=== PATIENT | female | born 1980 | race Caucasian/White ===

== ENCOUNTER 2020-12-07 04:23 | Inpatient (IN) | payer BC, OTHER ==
[~2020-12-07] VITALS: Ht 172.7 cm; Wt 89.8 kg
[2020-12-07] MEDS ORDERED: predniSONE 20 MG TABLET ONE (04:44)
[2020-12-07] MEDS ORDERED: FAMOTIDINE (20 MG) 20 MG TABLET ONE (04:45)
--- NOTE | 2020-12-07 04:45 | NUR ---
PT BIBSELF C/O HIVES X1.5 WEEKS. 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 TOOK 50MG PO BENADRYL. PT IS ALERT AND ORIENTED X4. AMBULATORY WITH NON LABORED BREATHING.
[2020-12-07] MEDS ORDERED: FAMOTIDINE (20 MG) 20 MG TABLET PO ONE (05:00)
[2020-12-07] MEDS ORDERED: predniSONE 50 MG TABLET PO ONE (05:00)
[2020-12-07] MEDS ORDERED: EPINEPHRINE (1:1000) MDV 30 MG/30ML VIAL SUBCUT ONE (07:30)
[2020-12-07] MEDS ORDERED: EPINEPHRINE (1:1000) 1 MG/ML AMPUL ONE (07:30)
--- NOTE | 2020-12-07 08:04 | NUR ---
THE PATIENT IS ALERT AND ORIENTED X4. DENIES PAIN. IN ROOM AIR AND DENIES SOB. RESPIRATION REGULAR AND UNLABORED. WILL CONTINUE TO MONITOR THE PATIENT.
[2020-12-07] MEDS ORDERED: EPIN0.3P3 IJ (11:46)
[2020-12-07] MEDS ORDERED: PRED50TA PO (11:46)
--- NOTE | 2020-12-07 12:27 | NUR ---
JUNITO DOTSON IS AMY [phone]
--- NOTE | 2020-12-07 12:36 | NUR ---
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
--- NOTE | 2020-12-07 12:39 | NUR ---
COVID SWAB DONE AND SENT TO THE LAB
--- NOTE | 2020-12-07 13:39 | NUR ---
ROOM 109
--- NOTE | 2020-12-07 13:59 | NUR ---
REPORT GIVEN TO NURSE ALI
--- NOTE | 2020-12-07 14:50 | NUR ---
WARDSPERSON NOTE RECEIVED PATIENT VIA WHEELCHAIR. PATIENT IS A/O X4. PATIENT IS BREATHING EVENLY AND NONLABORED ON ROOM AIR. NO SIGNS OF DISTRESS NOTED. PATIENT DOES NOT COMPLAIN OF PAIN AT THIS TIME. VITALS O2 99% HR 80 TEMP 97.3 RR 18 BP 140/93. PATIENT HAS GENERALIZED ITCHING AND HIVES THROUGHOUT HER BODY. OTHERWISE SKIN DRY TO TOUCH. PATIENT IS ABLE TO AMBULATE. PATIENT HAS IV ACCESS TO RAC # 18 GAUGE, PATENT AND INTACT. MD MADE AWARE OF PATIENTS ARRIVAL TO UNIT. PATIENT WAS ORIENTED TO THE ROOM AND HOW TO USE THE CALL LIGHT. SAFETY MEASURES ARE IN PLACE BED LOW LOCKED AND CALL LIGHT WITHIN REACH. WILL CONTINUE TO MONITOR
--- NOTE | 2020-12-07 15:00 | NUR ---
THE PATIENT IS TRANSFERED TO ROOM 109 IN STABLE CONDITION AND PER POLICY.
[2020-12-07 15:07] VITALS: BP 140/93
--- NOTE | 2020-12-07 16:36 | NUR ---
RN NOTE PATIENT COMPLAINED OF ITCHINESS. MD NOTIFIED GAVE NEW ORDER FOR BENADRYL 25MG IVP Q6HRS FOR ITCHINESS. WILL CONTINUE TO MONITOR
[2020-12-07] MEDS: diphenhydrAMINE HCL 50 MG/ML VIAL IV PRN ×2 (16:44→19:43)
--- NOTE | 2020-12-07 17:00 | NUR ---
RN NOTE MD MADE ROUNDS TO SEE PATIENT, ASKED FOR MD ADMISSIONS ORDERS, MD STATED SHE WOULD PUT THEM IN. WILL CONTINUE TO MONITOR
--- NOTE | 2020-12-07 18:33 | NUR ---
RN CLOSING NOTE PATIENT RESTING IN BEDPATIENT IS A/O X4. PATIENT IS BREATHING EVENLY AND NONLABORED ON ROOM AIR. NO SIGNS OF DISTRESS NOTED. PATIENT DOES NOT COMPLAIN OF PAIN AT THIS TIME. PATIENT HAS GENERALIZED ITCHING AND HIVES THROUGHOUT HER BODY. PATIENT IS ABLE TO AMBULATE. PATIENT HAS IV ACCESS TO RAC # 18 GAUGE, PATENT AND INTACT.SAFETY MEASURES ARE IN PLACE BED LOW LOCKED AND CALL LIGHT WITHIN REACH. WILL ENDORSE TO ONCOMING SHIFT
--- NOTE | 2020-12-07 19:45 | NUR ---
RN NOTES, PATIENT C/O ITCHING, OTHERWISE NO BREATHING ISSUES, VS STABLE, AT ROOM AIR WITH OPTIMAL O2 SAT LEVEL, BENADRYL IV GIVEN ORDERED, WILL CONTINUE TO MONITOR CLOSELY, NO ORDERS NOTED IN THE EMAR, PAGED ALLYSSA, WILL F/U .
[2020-12-07 20:00] VITALS: BP 119/69
[2020-12-07] MEDS ORDERED: MAGNESIUM HYDROXIDE 30 ML UDC PO PRN (20:30)
[2020-12-07] MEDS ORDERED: MAG HYDROX/AL HYDROX/SIMETH 30 ML UDC PO PRN (20:30)
[2020-12-07] MEDS ORDERED: Z GUARD REMEDY 2 OZ OINT TP PRN (20:30)
[2020-12-07] MEDS ORDERED: ACETAMINOPHEN 325 MG TABLET PO PRN (20:30)
[2020-12-07] MEDS ORDERED: ONDANSETRON HCL/PF 4 MG/2 ML VIAL IVP PRN (20:30)
[2020-12-07] MEDS: methylPREDNISolone SOD SUCC 125 MG/2ML VIAL IV SCH (21:43)
[2020-12-07] MEDS: FAMOTIDINE (20 MG) 20 MG TABLET PO SCH (21:43)
--- NOTE | 2020-12-08 00:21 | NUR ---
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
[2020-12-08] MEDS ORDERED: diphenhydrAMINE HCL 50 MG/ML VIAL IV ONE (00:30)
[2020-12-08] MEDS ORDERED: HYDROCODONE/APAP 5/325MG TABLET PO PRN (00:30)
[2020-12-08 04:00] VITALS: BP 126/78
[2020-12-08] MEDS: methylPREDNISolone SOD SUCC 125 MG/2ML VIAL IV SCH ×2 (04:53→12:34)
[2020-12-08] MEDS: diphenhydrAMINE HCL 50 MG/ML VIAL IV PRN ×2 (05:09→11:19)
[2020-12-08 06:30] LABS: BASOPHILS % (AUTO) 0.1 % (0.0-2.0); HEMATOCRIT 43 % (33-45); LYMPHOCYTES # (AUTO) 0.8 K/uL (0.8-4.8); LYMPHOCYTES % (AUTO) 8.5 % (20.0-44.0); MEAN CORPUSCULAR HGB CONC 33 g/dl (31.0-36.0); MEAN CORPUSCULAR VOLUME 88 fL (82-100); MONOCYTES # (AUTO) 0.1 K/uL (0.1-1.30); MONOCYTES % (AUTO) 0.8 % (2.0-12.0); NEUTROPHILS # (AUTO) 8.2 K/uL (1.8-8.9); NEUTROPHILS % (AUTO) 90.6 % (43.0-81.0); PLATELET COUNT (AUTO) 260 K/uL (150-450); RED BLOOD CELL COUNT(AUTO) 4.81 MIL/uL (4.0-5.2); WHITE BLOOD COUNT (AUTO) 9.1 K/uL (4.3-11.0)
[2020-12-08 06:37] LABS: CALCIUM, SERUM 9.1 mg/dL (8.5-10.1); CREATININE 0.8 mg/dL (0.6-1.3); MAGNESIUM 2.4 mg/dL (1.8-2.4); PHOSPHORUS 2.9 mg/dL (2.5-4.9); POTASSIUM 3.8 mmol/L (3.5-5.1)
[2020-12-08 06:42] LABS: THYROID STIMULATING HORMONE 1.789 uIU/mL (0.358-3.74)
--- NOTE | 2020-12-08 06:44 | NUR ---
RN NOTES PATIENT ASLEEP AT THIS TIME, AROUSES TO TACTILE STIMULI, AT RA NO SOB/ACUTE DISTRESS NOTED, NO TROUBLE BREATHING, CONTINUE WITH ITCHING AND NEW HIVES, BENADRYL IV ADMINISTERED X3 DURING MY SHIFT, ON SOLU MEDROL WELL, ALL NEEDS ATTENDED ALL SAFETY MEASURES IN PLACED, LOWEST LOCKED POSITION, CALL LIGHT WITHIN REACH, WILL ENDORSE CONTINUITY OF CARE TO ONCOMING NURSE.
--- NOTE | 2020-12-08 07:29 | NUR ---
RN OPENING NOTE PATIENT IN BED, RESTING A&OX4. ON ROOM AIR WITH NO SIGNS OF LABORED BREATHING. R HAND 22G IN PLACE. BED LOCKED AND IN LOWEST POSITION, CALL LIGHT WITHIN REACH, SIDE RAILS UP X3, ALL SAFETY MEASURES IMPLEMENTED.
[2020-12-08] MEDS: FAMOTIDINE (20 MG) 20 MG TABLET PO SCH (08:16)
[2020-12-08] MEDS ORDERED: DIPH25CA83 PO (13:50)
[2020-12-08] MEDS ORDERED: METH4TAB3 PO (13:50)
--- NOTE | 2020-12-08 15:05 | NUR ---
RN NOTE PATIENT DISCHARGED IN STABLE CONDITION.
== END 2020-12-08 15:00 | disposition home or self-care (01) | DRG 916 ==
LOC: ER 04:23 → TELE1 14:01 → MEDSG1 18:44
PROVIDERS: ADMIT Student in an Organized Health Care Education/Training Program; ATTEND Student in an Organized Health Care Education/Training Program
DX: T78.3XXA Angioneurotic edema, initial encounter (principal); F50.2 Bulimia nervosa; N20.0 Calculus of kidney; Z20.822 Contact with and (suspected) exposure to COVID-19; Z91.013 Allergy to seafood
CPT/HCPCS: 36415; 80048-TC; 80061-TC; 83735-TC; 84100-TC; 84443-TC; 84702-TC; 85025-TC; 87081-TC; G0378; J0171; J1200; J2405; J2930

== ENCOUNTER 2020-12-09 04:27 | Emergency (ER) | payer BC ==
[~2020-12-09] VITALS: Ht 172.7 cm; Wt 92.1 kg
[~2020-12-09 04:27] MED LIST: DIPH25CA83 PO; EPIN0.3P3 IJ; METH4TAB3 PO; PRED50TA PO
[2020-12-09 04:36] VITALS: BP 158/95
--- NOTE | 2020-12-09 04:52 | NUR ---
BIBMOTHER FROM HOME TO ER BED 4. AAOX4. NOT IN RESP DISTRESS, BREATHING EVEN AND UNLABORED. AMBULATORY. CAME IN FOR GEN BODY HIVES STARTED GAIN TODAY. PER PT, SHE WAS HERE ON TUESDAY FOR THE SAME REASON AND GOT ADMITTED FOR THE SAME REASON. PT REPORTS TAKING BENADRYL 50MG PO 30 MIN PHLEBOTOMY SUPPORT TECH. PT ALSO TOOK METHYPREDNISONE, ACCORDING TO HER SHE ALREADY TOOK 2 ROWS OF THE MEDROL PACK. NO AIRWAY COMPROMISE, TALKING IN FULL SENTENCES. PT ON MONITOR. AWAITING FOR
--- NOTE | 2020-12-09 06:09 | NUR ---
PT WAS NOT IN ROOM WHEN MD CAME TO SEE HER.
--- NOTE | 2020-12-09 06:11 | NUR ---
CHECKED IN THE PARKING AND WAITING ROOM BUT IN TO BE FOUND.
--- NOTE | 2020-12-09 06:12 | NUR ---
MADE AWARE THAT PT JONA.
== END 2020-12-09 06:15 | disposition left against medical advice (07) ==
LOC: ER 04:27
DX: Z53.21 Procedure and treatment not carried out due to patient leaving prior to being seen by health care provider (principal)

== ENCOUNTER 2020-12-09 17:21 | Emergency (ER) | payer BC ==
[~2020-12-09] VITALS: Ht 172.7 cm; Wt 92.1 kg
--- NOTE | 2020-12-09 17:24 | NUR ---
TO ER BED 2, C/O HIVES AND HOT FLASHES, WAS ADMITTED AND DISCHARGED YESTERDAY DUE TO ANGIOEDEMA, AAOX4, BREATHING EVEN AND NON LABORED, AWAITING MD CORDOVA
--- NOTE | 2020-12-09 18:00 | NUR ---
FAMILY AT BEDSIDE
[2020-12-09 19:20] VITALS: BP 136/81
--- NOTE | 2020-12-09 19:25 | NUR ---
Patient discharged to home in stable condition. Written and verbal after care instructions given. Patient verbalizes understanding of instruction.
== END 2020-12-09 19:26 | disposition home or self-care (01) ==
LOC: ER 17:23
DX: L50.0 Allergic urticaria (principal); R94.31 Abnormal electrocardiogram [ECG] [EKG]; F17.200 Nicotine dependence, unspecified, uncomplicated; Z91.013 Allergy to seafood; Z87.442 Personal history of urinary calculi; Z98.890 Other specified postprocedural states